=== PATIENT | female | born 1950 | race Two or more races ===

== ENCOUNTER 2017-03-03 19:52 | Emergency (ER) | payer MEDICARE, MEDICAID ==
--- NOTE | 2017-03-03 20:48 | ED Physician Chart ---
Chief Complaint/HPI - Patient Information Date Seen:: 03/03/17 Time Seen:: 20:35 Chief Complaint:: left palm laceration History of Present Illness:: At 1915 tonight patient tripped over a dog and fell. She also has a epidermal tear of the radial left forearm. Patient is right-hand dominant. Allergies:: Allergies Allergy/AdvReac Type Severity Reaction Status Date / Time Penicillins Allergy Verified 03/03/17 20:41 Historian:: Patient, Family Member Review:: Nurse's Note Reviewed Review of Systems - Review of Systems General/Constitutional: No fever, No chills Skin: Skin lesions Head: No headache Eyes: No loss of vision ENT: No earache Neck: No neck pain Cardio Vascular: No chest pain Pulmonary: No SOB GI: No nausea, No vomiting, No diarrhea G/U: No dysuria, No hematuria Musculoskeletal: No bone or joint pain Endocrine: No polyuria Psychiatric: No prior psych history Hematopoietic: No bruising Allergic/Immuno: No urticaria Neurological: No syncope, No focal symptoms Past Medical History - Past Medical History Past Medical History: HTN, DM, Arthritis, Other (osteoporosis) Family History: None Social History: Non Smoker, No Alcohol Surgical History: other (left wrist fracture) Psychiatricy History: None Medication: Reviewed Physical Exam - Physical Examination General/Constitutional: Well-developed, well-nourished, Alert, No distress Head: Atraumatic Eyes: Lids, conjuctiva normal, PERRL Other Skin comments:: 1 1/2 cm laceration to the thenar eminence left hand; fat protruding from the laceration; 3 cm radial left forearm epidermal tear with edges well approximated. ENMT: External ears, nose nl, TM canals nl, Nasal exam nl Other ENMT comments:: 4 out of 4 dental plaque and 3 out of 4 periodontal disease Neck: No nuchal rigidity Respiratory: Clear to Auscultation Cardio Vascular: RRR GI: No tenderness/rebounding/guarding : No CVA tenderness Extremities: No tenderness or effusion Neuro/Psych: Alert/oriented Misc: Normal back Assessment Location:: Skin cleansed with Betadine solution performed; 1% Xylocaine used for local anesthesia; laceration irrigated with normal saline; 5-0 chromic about 5 running sutures used to close the laceration ED Septic Shock - . Is Septic Shock (SBP<90, OR Lactate>4 mmol\L) present?: No Reassessment (Disposition) - Reassessment Reassessment Condition:: Improved - Diagnosis Diagnosis:: 1/2 cm laceration thenar eminence left hand - Aftercare/Follow up Instructions Aftercare/Follow-Up Instructions:: Refer to Discharge Instructions - Patient Disposition Discharge/Transfer:: Home Condition at Disposition:: Stable, Improved
== END 2017-03-03 21:45 | disposition home or self-care (01) ==
LOC: ER 19:52
DX: S61.412A Laceration without foreign body of left hand, initial encounter (principal); I10 Essential (primary) hypertension; E11.9 Type 2 diabetes mellitus without complications; Z88.0 Allergy status to penicillin; W19.XXXA Unspecified fall, initial encounter; Y93.89 Activity, other specified; Y92.89 Other specified places as the place of occurrence of the external cause; Y99.8 Other external cause status
CPT/HCPCS: 12001; J2001; Z7502